=== PATIENT | female | born 1980 | race Caucasian/White ===

== ENCOUNTER 2016-08-20 05:44 | Observation (INO) | payer SELFPAY ==
[~2016-08-20] VITALS: Ht 157.5 cm; Wt 68.6 kg
[2016-08-22] MEDS ORDERED: AMOXICILLIN500 MG PO (06:23)
[2016-08-22] MEDS ORDERED: NORCO 5-325 TA1 EACH PO (06:23)
[2016-08-22] MEDS ORDERED: CATAPRES-DPS0.1 MG PO (06:23)
--- NOTE | 2016-08-22 09:52 | OR ---
ADMIT: 08/20/2016 RM/LOC: [address] [facility] MR#: [id number] [address] [address] MARCI [place]ING[address] [place] [address] Operative/Delivery Room Report SEX: F AGE: 35 : 1980 SURGERY DATE: 08/20/2016 SURGEON: Hernán Simmons MD PREOPERATIVE DIAGNOSIS: Right thyroid nodule. POSTOPERATIVE DIAGNOSIS: Papillary thyroid carcinoma, right thyroid. OPERATION: Right thyroid lobectomy with frozen section. Left thyroid lobectomy (total thyroidectomy). ANESTHESIA: General oral endotracheal. ESTIMATED BLOOD LOSS: 90 mL. COMPLICATIONS: None. DRAINS: 7-mm Jeff-Calvillo. DESCRIPTION OF PROCEDURE: With the patient in supine position, under general oral endotracheal anesthesia, her eyes were taped. The neck was extended exposing the anterior neck which was prepped with ChloraPrep, allowed 3 minutes to dry, and the patient was draped sterilely. An incision was made following natural skin crease low in the neck that had been marked preoperatively. Along the incision a tattoo was present from previous radiation therapy and at patient request, this was excised, and the incision was carried through the platysma muscle with skin flaps elevated superiorly exposing the strap muscles. There were large anterior jugular veins bilaterally and these were in the midline exposing the thyroid isthmus. The gland was relatively large and it extended superiorly. The nodule of the right lobe was present in the superior aspect of the right thyroid lobe. It was hard, did not appear to extend beyond the capsule of the gland grossly and there were no identifiable lymph nodes during the procedure. The right thyroid lobe was removed. The gland was from the surrounding tissues with blunt dissection. Afferent and efferent vessels were treated by electrocautery. The major vessels were clamped, divided, and coagulated and there was good hemostasis through the procedure. The recurrent laryngeal nerve was identified. Removal of the lobe required skeletonization of the nerve, but the function confirmed intact following lobectomy by NIM-2 stimulation. The gland was pedicled at the isthmus, which was transected and the right lobe was removed and sent for frozen section analysis. This revealed the nodule to contain papillary thyroid carcinoma. A left thyroid lobe was then performed in completion of total thyroidectomy in treatment of papillary thyroid carcinoma. The lobe was removed very similar to that on the right. There were no palpable ADMIT: 08/20/2016 RM/LOC: [address] [facility] MR#: [id number] [address] [address] [place] [address] Operative/Delivery Room Report SEX: F AGE: 35 : 1980 nodules and no evidence of adenopathy identified during the dissection. The recurrent laryngeal nerve was identified, its function confirmed intact by NIM- 2 stimulation. There was good hemostasis following procedure, but during the procedure she lost approximately 60 to 90 mL of blood. The wound was closed in layers over a Jeff-Calvillo drain which was brought out the right sided strap muscles and incision. Strap muscles were closed with 3-0 chromic catgut, and the platysma layer closed with inverted interrupted some stitches of 3-0 chromic. The wound was closed with a running horizontal mattress suture. The drain was sutured to the skin with silk, and the operation completed and thyroid dressing was applied. She tolerated this well. She emerged from general anesthesia in the operating room, was extubated in the operating room, and transferred to the recovery room in good condition. Hernán Simmons MD/ long JOB #: [id number] CC: Hernán Simmons MD, Attending Physician FAMILY PHYSICIAN, Family Physician
--- NOTE | 2016-08-30 08:04 | HP ---
ADMIT: 08/20/2016 RM/LOC: [facility] MR#: [id number] [id number] [place], [place] [address] FARHAT SINGH [address] [place] [address] Pre-OP History and Physical SEX: F AGE: 35 : 1980 DATE OF SERVICE: HISTORY OF PRESENT ILLNESS: Farhat is 35 years old. She was admitted for thyroidectomy. 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 The significance of the term neoplasm and the follicular nature of the cells have been discussed with Farhat. Excisional biopsy has been recommended. We discussed the rationale for this as well as the risks including risks of recurrent laryngeal nerve injury, parathyroid gland dysfunction, wound infection, bleeding, as well as risk of anesthesia. Pertinent history includes Hodgkin lymphoma diagnosed by left neck biopsy in 2006. She is in good understanding and acceptance of the recommendations and the risks and she is admitted at this time for general anesthesia. MEDICATIONS: Prior to admission, nighttime sleep aid. ALLERGIES: NO MEDICINES KNOWN. PAST MEDICAL HISTORY: Left neck node biopsy consistent with lymphoma in 2006; back surgery 2011 and 2012, cholecystectomy, 2001. REVIEW OF SYSTEMS: Positive for asthma. She does not have known lower respiratory, cardiovascular, gastrointestinal, genitourinary, hematologic, or neurologic disorders. She has past history of drug addiction. She has past history of blood transfusions. SOCIAL HISTORY: She does not drink alcohol. She does drink caffeine and smokes cigarettes approximately 1/2 pack per day. FAMILY HISTORY: No known anesthetic complications. No coagulopathies. PHYSICAL EXAMINATION: GENERAL: A 35-year-old. HEENT: Pupils are equal. Conjunctivae clear. No proptosis. Ear canals, TMs, and middle ears clear. Nose, mouth, pharynx clear and symmetrical. Larynx, vocal cords function intact and symmetrical. There is hyperemia to the oral and laryngeal membranes consistent with nicotine mucositis. NECK: Palpable right thyroid nodule 2 cm, firm, nonfluctuant, nonpainful. No other cervical adenopathy or neck masses palpable. ADMIT: 08/20/2016 RM/LOC: [facility] MR#: [id number] [address] [address] [address] [place] [id number] Pre-OP History and Physical SEX: F AGE: 35 : 1980 LUNGS: Clear. No wheeze. No rales. HEART: Rhythm regular. EXTREMITIES: No cyanosis. No edema. IMPRESSION: 1. 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 2. History of lymphoma diagnosed by neck biopsy in 2006, present in remission. 3. Past history of drug addiction. 4. Nicotine use. PLAN: Thyroidectomy. Hernán Simmons MD/ long JOB #: [id number] CC: Hernán Simmons MD, Attending Physician NO FAMILY PHYSICIAN, Family Physician
== END 2016-08-21 10:10 | disposition home or self-care (01) ==
LOC: WOR 05:44 → 6PED 05:44
PROVIDERS: ADMIT Otolaryngology
PROC: 0GTK0ZZ Resection of Thyroid Gland, Open Approach (ICD-10-PCS; principal; 2016-08-20)
DX: C73 Malignant neoplasm of thyroid gland (principal); J45.909 Unspecified asthma, uncomplicated; K21.9 Gastro-esophageal reflux disease without esophagitis; F17.210 Nicotine dependence, cigarettes, uncomplicated; Z98.890 Other specified postprocedural states; Z79.899 Other long term (current) drug therapy